=== PATIENT | male | born 1965 | race Hispanic/Latino ===

== ENCOUNTER 2022-06-04 11:49 | Emergency (ER) | payer MEDICARE, BC ==
[~2022-06-04] VITALS: Ht 172.7 cm; Wt 124.7 kg
[2022-06-04] MEDS ORDERED: ASPIRIN 325 MG TAB PO ONE (18:00)
[2022-06-04] MEDS ORDERED: ASPIRIN 325 MG TAB ONE (18:09)
== END 2022-06-04 18:42 | disposition home or self-care (01) ==
LOC: FSED 11:59
DX: M79.632 Pain in left forearm (principal); I82.612 Acute embolism and thrombosis of superficial veins of left upper extremity; I12.0 Hypertensive chronic kidney disease with stage 5 chronic kidney disease or end stage renal disease; N18.6 End stage renal disease; Z99.2 Dependence on renal dialysis
CPT/HCPCS: 93971; 99283